=== PATIENT | male | born 1995 ===

== ENCOUNTER 2020-01-11 02:22 | Emergency (ER) | payer OTHER ==
[2020-01-11] MEDS ORDERED: HYDROCODONE/APAP 5/325 MG TAB ONE (03:07)
--- NOTE | 2020-01-11 03:08 | EDPHYS ---
Physician Documentation [facility] Name: Sami Cr Age: 24 yrs Sex: Male : 1995 Arrival Date: 01/11/2020 Time: 02:23 Bed 20 Private MD: ED Physician Gael Staples HPI: 01/10 05:09 This 24 yrs old Male presents to ER via Other with complaints of Crush Injury To Hand. tw4 05:09 The patient or guardian reports a contusion, decreased range of motion, pain. The tw4 complaints affect the left hand diffusely. Context: The problem was [place] at a prison. Onset: The symptoms/episode began/occurred today. Modifying factors: The symptoms are alleviated by nothing, the symptoms are aggravated by nothing. Associated signs and symptoms: The patient has no apparent associated signs or symptoms. The patient has not experienced similar symptoms in the past. Historical: - Allergies: 02:27 No Known Allergies; bb - Home Meds: 02:27 None [Active]; bb - PMHx: 02:27 None; bb - PSHx: 02:27 None; bb - Immunization history:: Adult Immunizations up to date. - Social history:: Smoking status: unknown. ROS: 05:09 Constitutional: Negative for fever, chills, and weight loss, Eyes: Negative for injury, tw4 pain, redness, and discharge, Cardiovascular: Negative for chest pain, palpitations, and edema, Respiratory: Negative for shortness of breath, cough, wheezing, and pleuritic chest pain, Abdomen/GI: Negative for abdominal pain, nausea, vomiting, diarrhea, and constipation, Skin: Negative for injury, rash, and discoloration. 05:09 MS/extremity: Positive for injury or acute deformity, pain. Exam: 05:09 Constitutional: This is a well developed, well nourished patient who is awake, alert, tw4 and in no acute distress. Head/Face: Normocephalic, atraumatic. Cardiovascular: Regular rate and rhythm with a normal S1 and S2. No gallops, murmurs, or rubs. Normal PMI, no JVD. No pulse deficits. Respiratory: Lungs have equal breath sounds bilaterally, clear to auscultation and percussion. No rales, rhonchi or wheezes noted. No increased work of breathing, no retractions or nasal flaring. Abdomen/GI: Soft, non-tender, with normal bowel sounds. No distension or tympany. No guarding or rebound. No evidence of tenderness throughout. Back: No spinal tenderness. No costovertebral tenderness. Full range of motion. 05:09 Musculoskeletal/extremity: Extremities: noted in the palmar aspect of middle phalanx of left middle finger: laceration, pain. Vital Signs: 02:23 BP 142 / 95; Pulse 79; Resp 16 S; Temp 98.9(O); Pulse Ox 98% on R/A; Weight 78.02 kg bb (R); Height 5 ft. 5 in. (165.10 cm); Pain 8/10; 03:30 BP 125 / 86; Pulse 71; Resp 16; Pulse Ox 98% on R/A; jb4 02:23 Body Mass Index 28.62 (78.02 kg, 165.10 cm) bb Laceration: 05:09 Wound Repair of 1cm ( 0.4in ) subcutaneous laceration to palmar aspect of middle tw4 phalanx of left middle finger. Distal neuro/vascular/tendon intact. Anesthesia: Local anesthetic administered with 2 mls of 1% lidocaine. Wound prep: Moderate cleansing. Skin closed with 4-0 Prolene using simple sutures and sterile technique. Skin closed with 2 1-0 Prolene using simple sutures and sterile technique. Dressed with Bacitracin, 4x4's, bandaid. Patient tolerated well. MDM: 02:27 Patient medically screened. tw4 05:14 Data reviewed: vital signs, nurses notes. Data reviewed: radiologic studies, plain tw4 films. Counseling: I had a detailed discussion with the patient and/or guardian regarding: the historical points, exam findings, and any diagnostic results supporting the discharge/admit diagnosis. Special discussion: I discussed with the patient/guardian in detail that at this point there is no indication for admission to the hospital. It is understood, however, that if the symptoms persist or worsen the patient needs to return immediately for re-evaluation. 01/10 02:32 Order name: Hand Right 3 View XRAY tw4 01/10 03:40 Order name: Dressing - Wound; Complete Time: 03:40 jb4 01/10 03:40 Order name: Gloves, Sterile; Complete Time: 03:40 jb4 01/10 03:40 Order name: Setup Suture Tray; Complete Time: 03:40 jb4 Administered Medications: 02:58 Drug: [place] 5 mg-325 mg 1 tabs Route: PO; jb4 03:40 Follow up: Response: No adverse reaction; Pain is decreased jb4 03:35 Drug: Lidocaine (1 %) 1 application Volume: 5 ml; Route: Infiltration; jb4 03:41 Follow up: Response: No adverse reaction jb4 Disposition: 01/11/20 03:08 Discharged to Home. Impression: Crushing injury of right middle finger, Laceration of blood vessel of right middle finger. - Condition is Stable. - Discharge Instructions: Hand Contusion, Laceration Care, Adult, Nonsutured Laceration Care. - Prescriptions for Ibuprofen 800 mg Oral Tablet - take 1 tablet by ORAL route every 8 hours As needed take with food; 30 tablet. - Medication Reconciliation Form, Thank You Letter, Antibiotic Education, Prescription Opioid Use form. - Follow up: Private Physician; When: Upon discharge from the Emergency Department; Reason: Recheck today's complaints, Continuance of care, Re-evaluation by your physician. - Problem is new. - Symptoms have improved. Signatures: Dispatcher [employer] EDKaity Ledezma RN RN bb Bryson, James, RN RN jb4 Gael Staples MD MD tw4 Corrections: (The following items were deleted from the chart) 03:44 03:08 01/11/2020 03:08 Discharged to Home. Impression: Crushing injury of right middle jb4 finger; Laceration of blood vessel of right middle finger. Condition is Stable. Forms are Medication Reconciliation Form, Thank You Letter, Antibiotic Education, Prescription Opioid Use. Follow up: Private Physician; When: Upon discharge from the Emergency Department; Reason: Recheck today's complaints, Continuance of care, Re-evaluation by your physician. Problem is new. Symptoms have improved. tw4
--- NOTE | 2020-01-11 03:08 | ER ---
Nurse's Notes [facility] Name: Sami Cr Age: 24 yrs Sex: Male : 1995 Arrival Date: 01/11/2020 Time: 02:23 Bed 20 Private MD: Diagnosis: Crushing injury of right middle finger;Laceration of blood vessel of right middle finger Presentation: 01/10 02:23 Chief complaint: [employer] employee reports pt received crush injury to right hand by getting bb it caught in the door when it was closing. Coronavirus screen: At this time, the client does not indicate any symptoms associated with coronavirus-19. Ebola Screen: No symptoms or risks identified at this time. Initial Sepsis Screen: Does the patient meet any 2 criteria? No. Patient's initial sepsis screen is negative. Does the patient have a suspected source of infection? No. Patient's initial sepsis screen is negative. Risk Assessment: Do you want to hurt yourself or someone else? Patient reports no desire to harm self or others. Onset of symptoms was January 11, 2020. 02:23 Method Of Arrival: Other bb 02: Acuity: NAVJOT 3 bb Historical: - Allergies: 02: No Known Allergies; bb - Home Meds: 02: None [Active]; bb - PMHx: 02: None; bb - PSHx: 02: None; bb - Immunization history:: Adult Immunizations up to date. - Social history:: Smoking status: unknown. Screenin:30 Abuse screen: Denies threats or abuse. Nutritional screening: No deficits noted. jb4 Tuberculosis screening: No symptoms or risk factors identified. Fall Risk None identified. Assessment: 02:30 General: Appears uncomfortable, well groomed, Behavior is calm, cooperative, cr4 appropriate for age. Pain: Complains of pain in right hand fingers Pain radiates to radiates up the hand Pain currently is 10 out of 10 on a pain scale. Quality of pain is described as heavy, throbbing, Pain began 4 hours ago. Is continuous, Aggravated by repositioning. Neuro: Reports numbness in 2nd, 3rd and 4th right hand didgits. Cardiovascular: No deficits noted. Respiratory: No deficits noted. GI: No deficits noted. : No deficits noted. EENT: No deficits noted. Derm: Skin Skin is Skin is mottled, Wound noted wound to r anterior and posterior finger. 3rd digit nail and anterior finger. Bruising that is bright red, Decubitus Abscess Reports pain tingling. Derm: bleding noted to wounds to his 3rd and 4th right hand fingers. Musculoskeletal: Capillary refill < 3 seconds, Range of motion: limited in 2nd, 3rd and 4th digit fingers on right hand. Swelling present in right hand. Injury Description: Patient reports having a cell door close on his right hand. 03:41 Reassessment: Patient appears in no apparent distress at this time. Patient and/or jb4 family updated on plan of care and expected duration. Pain level reassessed. Patient is alert, oriented x 3, equal unlabored respirations, skin warm/dry/pink. Vital Signs: 02:23 BP 142 / 95; Pulse 79; Resp 16 S; Temp 98.9(O); Pulse Ox 98% on R/A; Weight 78.02 kg bb (R); Height 5 ft. 5 in. (165.10 cm); Pain 8/10; 03:30 BP 125 / 86; Pulse 71; Resp 16; Pulse Ox 98% on R/A; jb4 02:23 Body Mass Index 28.62 (78.02 kg, 165.10 cm) ED Course: 02:23 Patient arrived in ED. bb 02:24 Manuel Vargas, RN is Primary Nurse. jb4 02:27 Gael Staples MD is Attending Physician. tw4 02:27 Triage completed. bb 02:27 Arm band placed on Patient placed in an exam room, on a stretcher, on pulse oximetry, bb Patient accompanied by [employer] guards. 02:30 Patient has correct armband on for positive identification. Bed in low position. Call jb4 light in reach. Side rails up X 1. Pulse ox on. NIBP on. 03:03 Hand Right 3 View XRAY In Process Unspecified. EDMS 03:35 Assist provider with laceration repair on palmar aspect of distal phalanx of right ring jb4 finger that was 2.5 cm. or less using sutures. Set up tray. Performed by Gael Staples MD Dressed with band aid, Neosporin, Patient tolerated well. 03:35 Patient did not have IV access during this emergency room visit. jb4 Administered Medications: 02:58 Drug: [place] 5 mg-325 mg 1 tabs Route: PO; jb4 03:40 Follow up: Response: No adverse reaction; Pain is decreased jb4 03:35 Drug: Lidocaine (1 %) 1 application Volume: 5 ml; Route: Infiltration; jb4 03:41 Follow up: Response: No adverse reaction jb4 Outcome: 03:08 Discharge ordered by . tw4 03:44 Discharged to Law Enforcement jb4 03:44 Condition: stable 03:44 Discharge instructions given to patient, police, Instructed on discharge instructions, follow up and referral plans. medication usage, Demonstrated understanding of instructions, follow-up care, medications, Prescriptions given X 1. 03:44 Patient left the ED. jb4 Signatures: Dispatcher [employer] EDKaity Ledezma RN RN bb Ruiz, Claudia, RN RN cr4 Manuel Vargas RN RN jb4 Gael Staples MD MD tw4
[2020-01-11] MEDS ORDERED: LIDOCAINE 1% MPF 5 ML VIAL ONE (03:40)
[2020-01-11 03:52] VITALS: TEMP 98.9; O2SAT 98
[2020-01-11 03:54] VITALS: BP 125/86
--- NOTE | 2020-01-11 09:11 | RAD REPORT ---
EXAM DESCRIPTION: RAD - Hand Right 3 View - 01/11/2020 3:03 am CLINICAL HISTORY: Right hand pain status post injury FINDINGS: No acute fracture or dislocation seen
== END 2020-01-11 03:44 | disposition home or self-care (01) ==
LOC: ER 02:22
PROC: 0JQJ0ZZ Repair Right Hand Subcutaneous Tissue and Fascia, Open Approach (ICD-10-PCS; principal; 2020-01-11)
DX: S61.212A Laceration without foreign body of right middle finger without damage to nail, initial encounter (principal); W23.0XXA Caught, crushed, jammed, or pinched between moving objects, initial encounter; Y93.89 Activity, other specified; Y92.89 Other specified places as the place of occurrence of the external cause; Y99.8 Other external cause status
CPT/HCPCS: 99284